=== PATIENT | female | born 1990 | race Caucasian/White ===

== ENCOUNTER 2017-11-30 14:26 | Outpatient (CLI) | payer MEDICAID ==
[~2017-11-30] VITALS: Ht 175.3 cm; Wt 98.2 kg
[2017-11-30 14:30] VITALS: BP 116/73
[2017-11-30 15:12] LABS: MICROSCOPIC INDICATED
[2017-11-30 15:33] LABS: AMPHETAMINE SCREEN, URINE Negative (Negative); BARBITURATE SCREEN, URINE Negative (Negative); BENZODIAZEPINE SCREEN, URINE Negative (Negative); CANNABINOID SCREEN, URINE Negative (Negative); COCAINE SCREEN, URINE Negative (Negative); METHADONE SCREEN, URINE Negative (Negative); OPIATE SCREEN, URINE Negative (Negative)
== END 2017-11-30 15:45 | disposition home or self-care (01) ==
LOC: LDOP 14:26
PROVIDERS: ATTEND Obstetrics & Gynecology
DX: O26.893 Other specified pregnancy related conditions, third trimester (principal); R25.2 Cramp and spasm; Z3A.37 37 weeks gestation of pregnancy
CPT/HCPCS: 59025; 80307; 81001; 87086; 93005; 99201; G0463